=== PATIENT | female | born 1985 | race African-American/Black ===

== ENCOUNTER 2017-01-17 18:43 | Emergency (ER) | payer OTHER ==
[~2017-01-17] VITALS: Ht 162.6 cm; Wt 60.0 kg
[~2017-01-17 18:43] MED LIST: ATARAX,VISTARIL50 MG PO; FLOVENT 44120 INHALA IH; GUAIFENESI100 MG/5 M PO; INDOCIN25 MG PO; LEVOFLOXACIN750 MG PO; MEDROXYPRO150 MG/1 M IM; METRONIDAZOLE500 MG PO; MOTRIN800 MG PO; PERCOCET 5/31 TABLET PO; PREDNISONE20 MG PO; PRENATAL VITAM1 EAC4 PO; TYLENOL REGULA325 MG PO; VENTOLIN HFA18 GM IH
[2017-01-17] MEDS ORDERED: ZITHROMAX Z-PA250 MG PO (21:02)
[2017-01-17] MEDS ORDERED: PROVENTIL HFA6.7 GM IH (21:02)
[2017-01-17] MEDS ORDERED: PREDNISONE20 MG PO (21:03)
[2017-01-17 21:29] VITALS: BP 126/87
== END 2017-01-17 21:30 | disposition home or self-care (01) ==
LOC: EME 18:43
DX: J06.9 Acute upper respiratory infection, unspecified (principal); J45.909 Unspecified asthma, uncomplicated; Z87.891 Personal history of nicotine dependence
CPT/HCPCS: 71020; 93005; 94640; 99281; 99283; J7512

== ENCOUNTER 2017-02-24 09:28 | Emergency (ER) | payer OTHER ==
[~2017-02-24] VITALS: Ht 162.6 cm; Wt 65.3 kg
[~2017-02-24 09:28] MED LIST changes: +PROVENTIL HFA6.7 GM IH; +ZITHROMAX Z-PA250 MG PO
[2017-02-24] MEDS ORDERED: VENTOLIN HFA18 GM IH (10:51)
[2017-02-24] MEDS ORDERED: PREDNISONE20 MG PO (10:51)
[2017-02-24 11:23] VITALS: BP 120/76
== END 2017-02-24 11:24 | disposition home or self-care (01) ==
LOC: EME 09:28
DX: J45.901 Unspecified asthma with (acute) exacerbation (principal); Z76.0 Encounter for issue of repeat prescription
CPT/HCPCS: 94640; 99281; 99283; J7512

== ENCOUNTER 2017-08-07 08:38 | Emergency (ER) | payer OTHER ==
[~2017-08-07] VITALS: Ht 162.6 cm; Wt 65.3 kg
[2017-08-07 11:18] LABS: HEMATOCRIT 39.7 % (36.0-46.0); HEMOGLOBIN 13.9 G/DL (11.9-15.5); MCH 30.8 PG (29.0-34.0); RBC DIS.WIDTH-SD 38.5 % (39-53); RED BLOOD COUNT 4.51 M/uL (3.80-5.20); WHITE BLOOD COUNT 8.1 K/uL (4.1-10.2)
[2017-08-07 11:38] LABS: CHLORIDE 107 mEq/L (99-109); POTASSIUM 4.2 mEq/L (3.7-5.4); SODIUM 139 mEq/L (136-147)
[2017-08-07 11:53] LABS: QUANTITATIVE HCG < 4.0 MIU/ML
[2017-08-07 12:05] LABS: GLUCOSE 82 mg/dL (70-99)
[2017-08-07 12:09] LABS: GFR ESTIMATE (CALCULATED) > 59 mL/min/
[2017-08-07 12:10] LABS: UREA NITROGEN (BUN) 8 mg/dL (9-23)
[2017-08-07 12:13] LABS: PLAT.SUFFICIENCY ADEQUATE; PLATELET COUNT 278 K/uL (156-360)
[2017-08-07] MEDS ORDERED: PREDNISONE20 MG PO (12:18)
[2017-08-07] MEDS ORDERED: TESSALON PERLE100 MG PO (12:18)
[2017-08-07 13:53] VITALS: BP 112/72
== END 2017-08-07 13:54 | disposition home or self-care (01) ==
LOC: EME 08:38
PROVIDERS: Physician Assistant
DX: J06.9 Acute upper respiratory infection, unspecified (principal); J45.901 Unspecified asthma with (acute) exacerbation
CPT/HCPCS: 71046; 80048; 84702; 85027; 87502; 94640; 99281; 99284; J2930; J7030